=== PATIENT | female | born 1950 | race Caucasian/White ===

== ENCOUNTER 2020-08-04 07:54 | Day surgery (SDC) | payer MEDICARE ==
[~2020-08-04] VITALS: Ht 160 cm; Wt 90.0 kg
[~2020-08-04 07:54] MED LIST: AMLODIPINE BESYL5 MG PO; BUDESONIDE-FO10.2 G1 INH; BUPROPION XL300 MG PO; CENTRUM SILVER1 EAC4 PO; LISINOPRIL-HCT1 EAC1 PO; METOPROLOL SUCC25 MG PO; MONTELUKAST SOD10 MG PO; PROVENTIL HFA6.7 GM INH; SPIRIVA RESPIMAT4 GM INH
[2020-08-04] MEDS ORDERED: PERCOCET 5-3251 EACH PO (12:44)
--- NOTE | 2020-08-04 14:16 | NUR ---
PT. TO D/C HOME WITH SPOUSE. SHE HAS A ROLILNG WALKER AND CANE. SHE REQUESTS A/[facility] FOR PT/OT AND NURSING ASSESSMENT. PER PT. HER XARELTO IS A $15.00 COPAY WITH AUTH REQUIRED.
[2020-08-05 06:01] LABS: BASOPHIL 0.5 % (0-2); EOSINOPHIL 2.3 % (0-7); HCT 31.1 % (37.0-47.0); HGB 10.1 g/dl (12.5-16.0); LYMPHOCYTE 16.4 % (15-48); MCHC 32.5 g/dL (32.0-36.0); MCV 92.3 fL (78.0-100.0); MONOCYTE 6.9 % (0-12); MPV 11.6 fL (6.0-9.5); NEUTROPHIL 73.4 % (41-80); NRBC 0; PLT 163 K/uL (150-400); RBC 3.37 M/uL (4.20-5.40); RDW 14.2 % (11.5-14.0); WBC 8.2 K/uL (4.0-10.5)
[2020-08-05 06:25] LABS: BUN/CREAT RATIO (CALC) 20.4 RATIO; CREATININE 1.47 mg/dL (0.51-0.95); POTASSIUM 4.7 mmol/L (3.5-5.1)
[2020-08-05] MEDS ORDERED: XARELTO10 MG PO (08:50)
[2020-08-05] MEDS ORDERED: FEOSOL325 MG PO (08:50)
[2020-08-05] MEDS ORDERED: ZOFRAN4 M1 PO (08:51)
--- NOTE | 2020-08-05 09:00 | NUR ---
PT SIGNED CHOICE FORM THIS DATE. SHE WILL D/C HOME WITH SPOUSE, HAS A ROLLING WALKER, CANE, AND REQUESTES [facility]. AFFLIATIONS ACKNOWLEDGED. TABATHA COPAY IS $15.00.
== END 2020-08-05 14:53 | disposition home health service (06) ==
LOC: FMS 07:54 → FAS 07:54 → FMS 11:57 → FAS 08-05 14:53
PROVIDERS: Legal Medicine
DX: M17.12 Unilateral primary osteoarthritis, left knee (principal); I25.810 Atherosclerosis of coronary artery bypass graft(s) without angina pectoris; I10 Essential (primary) hypertension; J44.9 Chronic obstructive pulmonary disease, unspecified; N39.3 Stress incontinence (female) (male); Z95.1 Presence of aortocoronary bypass graft; Z79.899 Other long term (current) drug therapy; Z90.710 Acquired absence of both cervix and uterus; Z96.651 Presence of right artificial knee joint; Z20.822 Contact with and (suspected) exposure to COVID-19
CPT/HCPCS: 36415; 80048; 85025; 86850; 86900; 86901; 94010; 94640; 94762; 97110; 97116; 97162; 97166; 97530-GP; 97535; C1713; C1776; J0171; J0697; J1170; J2060; J2250; J2270; J2405; J2704; J2795; J3010; J7120